=== PATIENT | female | born 1965 | race Caucasian/White ===

== ENCOUNTER 2017-06-21 10:37 | Emergency (ER) | payer OTHER ==
[2017-06-21] MEDS ORDERED: Ondansetron 4 MG/2 ML SDV IVPUSH ONE (11:17)
[2017-06-21] MEDS ORDERED: Sodium Chloride 0.9% 1,000 ML IV ONE (11:17)
--- NOTE | 2017-06-21 11:24 | EDM.PDOC ---
ED HPI GENERAL MEDICAL PROBLEM - General Chief Complaint: Eye Problems Stated Complaint: SEEING REBEKAH HOUSTON Time Seen by Provider: 06/21/17 10:44 Source of Information: Reports: Patient History Limitations: Reports: No Limitations - History of Present Illness INITIAL COMMENTS - FREE TEXT/NARRATIVE: HISTORY AND PHYSICAL: History of present illness: Patient is a 52-year-old female who presents to the emergency room with complaints of migraine headache and a brief episode of disturbance. 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 She states she took some prescribed migraine medication and went home. When she presented to the emergency room she stated she had no concerns other than wanting her vision evaluated. Upon my examination she states that he now has a migraine. This is accompanied with nausea, and light sensitivity. With previous migraines, she has have had no precipitated aura. She denies any recent head injury or trauma. Reports she gets at least one migraine per month. 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 Denies any alcohol or drug abuse Review of systems: As per history of present illness and below otherwise all systems reviewed and negative. Past medical history: As per history of present illness and as reviewed below otherwise noncontributory. Surgical history: As per history of present illness and as reviewed below otherwise noncontributory. Social history: No reported history of drug or alcohol abuse. Family history: As per history of present illness and as reviewed below otherwise noncontributory. Physical exam: Gen.: Well-developed and well-nourished 52-year-old female. Appears nontoxic. Able to speak in full sentences without shortness of breath. Alert and oriented. HEENT: Atraumatic, normocephalic, pupils reactive, negative for conjunctival pallor or scleral icterus, mucous membranes moist, throat clear, neck supple, nontender, trachea midline. Lungs: Clear to auscultation, breath sounds equal bilaterally, chest nontender. Heart: S1S2, regular rate and rhythm without any overt murmurs Abdomen: Soft, nondistended, nontender. Negative for masses or hepatosplenomegaly. Negative for costovertebral tenderness. Pelvis: Stable nontender. Genitourinary: Deferred. Rectal: Deferred. Extremities: Atraumatic, negative for cords or calf pain. Neurovascular unremarkable. I witnessed the patient walk in the hallways and she was steady on her feet. Gait was coordinated. Neuro: Awake, alert, oriented. Cranial nerves II through XII unremarkable. Cerebellum unremarkable. Motor and sensory unremarkable throughout. Exam nonfocal. Reviewed lab and CT results with patient. These were within normal limits. When asked how she's feeling, she reports "while I'm here". She is requesting something stronger for pain. I informed her that she is likely not could have her pain completely gone at this time. We discussed her following up with her primary senior pensions administrator for a yearly eye exam, she is agreeable and voices understanding. I ordered morphine at this time for pain management. She told nursing staff "this does not work for me". Will try Ativan to help alleviate her headache. She does have a ride home. We'll discharge her to home. She will follow-up with her primary care provider for further evaluation. Is agreeable to plan of care and denies any further questions. Diagnostics: CBC, CMP, CT Therapeutics: IV fluid, Zofran Toradol (patient states she has had this in the emergency room previously without any problems, not a true allergy) Morphine-patient declined Ativan Impression: Migraine with aura Plan: 1. These do not drive as you have been given Ativan for pain. Take the rest of the day to recover from your migraine, preferably in a dark quiet room. He may take [id number] migraine medications such as Aleve. 2. Follow-up with your primary care provider for further evaluation as we discussed. Please see the senior pensions administrator for yearly eye exam as we discussed. Return to the ED as needed and as discussed. Definitive disposition and diagnosis as appropriate pending reevaluation and review of above. Onset: Today Duration: Minutes: Location: Reports: Head Improves with: Reports: None Worsens with: Reports: None Bilateral Head Pain Score (Numeric/FACES): 6 - Related Data Allergies Allergy/AdvReac Type Severity Reaction Status Date / Time ibuprofen Allergy Edema Verified 06/21/17 10:47 shellfish derived Allergy Itching Verified 06/21/17 10:47 Sulfa (Sulfonamide Allergy Edema Verified 06/21/17 10:47 Antibiotics) Home Meds: Home Meds Baclofen 20 mg PO BID PRN 06/21/17 [History] Escitalopram [Lexapro] 20 mg PO BID 06/21/17 [History] SUMAtriptan [Imitrex] 100 mg PO Q8HR PRN 06/21/17 [History] oxyCODONE HCl/Acetaminophen [Percocet 5-325 mg Tablet] 0.5 each PO BEDTIME PRN 06/21/17 [History] Past Medical History Other OB/BYN History: hysterectomy Other Musculoskeletal History: neck pain Neurological History: Reports: Migraines - Past Surgical History Other HEENT Surgeries/Procedures: lasix, dental implains Other Female Surgeries/Procedures: kidney stent Social & Family History - Family History Family Medical History: Noncontributory - Tobacco Use Smoking Status *Q: Never Smoker - Recreational Drug Use Recreational Drug Use: No ED ROS GENERAL - Review of Systems Review Of Systems: ROS reveals no pertinent complaints other than HPI. Constitutional: Denies: Fever, Chills Respiratory: Denies: Shortness of Breath Cardiovascular: Denies: Chest Pain, Blood Pressure Problem, Palpitations GI/Abdominal: Reports: Nausea. Denies: Abdominal Pain, Diarrhea, Vomiting Musculoskeletal: Reports: Neck Pain (Chronic neck pain) Neurological: Reports: Headache. Denies: Confusion, Numbness ED EXAM GENERAL W FULL EYE - Physical Exam Exam: See Below (See dictation) Course - Vital Signs Last Recorded V/S: Last Vital Signs Temp 36.5 C 06/21/17 10:51 Pulse 71 06/21/17 13:14 Resp 18 06/21/17 13:14 BP 152/83 H 06/21/17 13:14 Pulse Ox 98 06/21/17 13:14 - Orders/Labs/Meds Labs: Laboratory Tests 06/21/17 06/21/17 Range/Units 11:30 11:30 WBC 7.81 (4.0-11.0) K/uL RBC 5.00 (4.30-5.90) M/uL Hgb 14.5 (12.0-16.0) g/dL Hct 43.9 (36.0-46.0) % MCV 87.8 (80.0-98.0) fL MCH 29.0 (27.0-32.0) pg MCHC 33.0 (31.0-37.0) g/dL RDW Std Deviation 42.3 (28.0-62.0) fl RDW Coeff of Carly 14 (11.0-15.0) % Plt Count 219 (150-400) K/uL MPV 10.10 (7.40-12.00) fL Neut % (Auto) 65.8 (48.0-80.0) % Lymph % (Auto) 24.8 (16.0-40.0) % [place] % (Auto) 7.8 (0.0-15.0) % Eos % (Auto) 1.5 (0.0-7.0) % Baso % (Auto) 0.1 (0.0-1.5) % Neut # (Auto) 5.1 (1.4-5.7) K/uL Lymph # (Auto) 1.9 (0.6-2.4) K/uL [place] # (Auto) 0.6 (0.0-0.8) K/uL Eos # (Auto) 0.1 (0.0-0.7) K/uL Baso # (Auto) 0.0 (0.0-0.1) K/uL Sodium 141 (136-146) mmol/L Potassium 4.5 (3.5-5.1) mmol/L Chloride 101 (98-110) mmol/L Carbon Dioxide 30 (21-31) mmol/L BUN 14 (6.0-23.0) mg/dL Creatinine 0.9 (0.6-1.5) mg/dL Est Cr Clr Drug Dosing 64.58 mL/min Estimated GFR (MDRD) > 60.0 ml/min Glucose 92 (60-110) mg/dL Calcium 9.9 (8.8-10.8) mg/dL Total Bilirubin 0.5 (0.1-1.5) mg/dL AST 35 (5-40) IU/L ALT 51 (8-54) IU/L Alkaline Phosphatase 76 (40-150) Total Protein 7.5 (6.0-8.0) g/dL Albumin 4.3 (3.5-5.0) g/dL Globulin 3.2 (2.0-3.5) g/dL Albumin/Globulin Ratio 1.3 (1.3-2.8) Meds: Medications Discontinued Medications Generic Name Dose Route Start Last Admin Trade Name Freq PRN Reason Stop Dose Admin Sodium Chloride 1,000 mls @ 999 mls/hr 06/21/17 11:17 06/21/17 11:40 Normal Saline IV 06/21/17 12:17 999 mls/hr STAT ONE Administration Ketorolac Tromethamine 30 mg 06/21/17 11:27 06/21/17 11:43 Toradol IVPUSH 06/21/17 11:28 30 mg ONETIME ONE Administration Lorazepam 0.5 mg 06/21/17 12:44 06/21/17 13:06 Ativan IVPUSH 06/21/17 12:45 0.5 mg ONETIME ONE Administration Morphine Sulfate 2 mg 06/21/17 12:15 06/21/17 12:29 Morphine IVPUSH 06/21/17 12:16 Not Given ONETIME ONE Ondansetron HCl 4 mg 06/21/17 11:17 06/21/17 11:40 Zofran IVPUSH 06/21/17 11:18 4 mg ONETIME ONE Administration Departure - Departure Time of Disposition: 12:49 Disposition: Home, Self-Care 01 Condition: Good Clinical Impression: Migraine Qualifiers: Migraine type: with aura Status migrainosus presence: without status migrainosus Intractability: not intractable Qualified Code(s): G43.109 - Migraine with aura, not intractable, without status migrainosus - Discharge Information Instructions: Migraine Headache, [id number] Referrals: Aniya Zapata DO [Primary Care Provider] - Forms: ED Department Discharge Additional Instructions: My general discharge The following information is given to patients seen in the emergency department who are being discharged to home. This information is to outline your options for follow-up care. We provide all patients seen in our emergency department with a follow-up referral. The need for follow-up, as well as the timing and circumstances, are variable depending upon the specifics of your emergency department visit. If you don't have a primary care physician on staff, we will provide you with a referral. We always advise you to contact your personal physician following an emergency department visit to inform them of the circumstance of the visit and for follow-up with them and/or the need for any referrals to a consulting specialist. The emergency department will also refer you to a specialist when appropriate. This referral assures that you have the opportunity for follow-up care with a specialist. All of these measure are taken in an effort to provide you with optimal care, which includes your follow-up. Under all circumstances we always encourage you to contact your private physician who remains a resource for coordinating your care. When calling for follow-up care, please make the office aware that this follow-up is from your recent emergency room visit. If for any reason you are refused follow-up, please contact the [facility] Emergency Department at and asked to speak to the emergency department charge nurse. [facility] [address] [place] [id number] [facility] [address] [address] [address] as you have been given Ativan for pain. Take the rest of the day to recover from your migraine, preferably in a dark quiet room. He may take [id number] migraine medications such as Excedrin Migraine. 2. Follow-up with your primary care provider for further evaluation as we discussed. Please see the senior pensions administrator for yearly eye exam as we discussed. Return to the ED as needed and as discussed.
[2017-06-21] MEDS ORDERED: Ketorolac 30 MG/ML SDV IVPUSH ONE (11:27)
[2017-06-21 12:05] LABS: CHLORIDE,CL 101 mmol/L (98-110); SODIUM,NA 141 mmol/L (136-146)
--- NOTE | 2017-06-21 12:11 | CT ---
EXAMINATION: Non contrast CT head. Coronal and sagittal reformats. HISTORY: Pain FINDINGS: No evidence of intra or extra axial hemorrhage, mass, midline shift, hydrocephalus or edema. No hypoattenuation changes in the major vascular territories to suggest acute infarct. No abnormal intracranial calcifications are detected. No evidence of substantial vascular calcificat ions. Paranasal sinuses and mastoid air cells are well aerated without substantial findings. The orbits an d globes are symmetric. Pituitary fossa appears unremarkable. Mild leftward deviation of the nasal septum. Calvarium is intact. No evidence of skull fracture. IMPRESSION: No acute intracranial findings.
[2017-06-21] MEDS ORDERED: Morphine 2 MG/ML Syringe IVPUSH ONE (12:15)
[2017-06-21] MEDS ORDERED: LORazepam 2 MG/ML SDV IVPUSH ONE (12:44)
[2017-06-21 15:34] VITALS: BP 152/83
== END 2017-06-21 13:14 | disposition home or self-care (01) ==
LOC: MW.ED 10:37
DX: G43.109 Migraine with aura, not intractable, without status migrainosus (principal); Z88.2 Allergy status to sulfonamides; Z88.6 Allergy status to analgesic agent; Z91.013 Allergy to seafood
CPT/HCPCS: 36415; 70450; 80053; 85025; 96361; 96374; 96375; 99284; J1885; J2060; J2405; J7040; 99283

== ENCOUNTER 2017-08-19 08:19 | Emergency (ER) | payer OTHER ==
[2017-08-19] MEDS ORDERED: Sodium Chloride 0.9% 1,000 ML IV ONE ×2 (08:35→09:57)
[2017-08-19] MEDS ORDERED: Ketorolac 30 MG/ML SDV IVPUSH ONE (08:35)
[2017-08-19] MEDS ORDERED: Ondansetron 4 MG/2 ML SDV IVPUSH ONE (08:35)
--- NOTE | 2017-08-19 08:36 | EDM.PDOC ---
ED HPI GENERAL MEDICAL PROBLEM - General Chief Complaint: Respiratory Problem Stated Complaint: MIGRAINE AND FLU LIKE SYMPTOMS Time Seen by Provider: 08/19/17 08:35 Source of Information: Reports: Patient - History of Present Illness INITIAL COMMENTS - FREE TEXT/NARRATIVE: HISTORY AND PHYSICAL: History of present illness: [Patient with fever cough and myalgias presents with migraine today, she does have history of migraine she rates 10 out of 10 on arrival after initial treatment of Toradol and bolus fluids 6 out of 10 hour. Did provide some Ativan and Benadryl thereafter with improvement she is influenza positive No vomiting chills sweats no chest pain shortness breath headache dizziness palpitation about a urine symptoms ] Review of systems: As per history of present illness and below otherwise all systems reviewed and negative. Past medical history: As per history of present illness and as reviewed below otherwise noncontributory. Surgical history: As per history of present illness and as reviewed below otherwise noncontributory. Social history: No reported history of drug or alcohol abuse. Family history: As per history of present illness and as reviewed below otherwise noncontributory. Physical exam: HEENT: Atraumatic, normocephalic, pupils reactive, negative for conjunctival pallor or scleral icterus, mucous membranes moist, throat clear, neck supple, nontender, trachea midline. Lungs: Clear to auscultation, breath sounds equal bilaterally, chest nontender. Heart: S1S2, regular, negative for clicks, rubs, or JVD. Abdomen: Soft, nondistended, nontender. Negative for masses or hepatosplenomegaly. Negative for costovertebral tenderness. Pelvis: Stable nontender. Genitourinary: Deferred. Rectal: Deferred. Extremities: Atraumatic, negative for cords or calf pain. Neurovascular unremarkable. Neuro: Awake, alert, oriented. Cranial nerves II through XII unremarkable. Cerebellum unremarkable. Motor and sensory unremarkable throughout. Exam nonfocal. Diagnostics: [Influenza Chest 1 view CBC CMP UA ] Therapeutics: [1 L normal saline bolus Zofran 8 mg IV Toradol 30 mg IV Ativan 1 mg IV Benadryl 25 mg IV Tamiflu Phenergan with codeine Rest fluids nutrition ] Impression: Influenza Migraine Vomiting] Definitive disposition and diagnosis as appropriate pending reevaluation and review of above. Headache Pain Score (Numeric/FACES): 10 - Related Data Allergies Allergy/AdvReac Type Severity Reaction Status Date / Time ibuprofen Allergy Edema Verified 08/19/17 08:34 shellfish derived Allergy Itching Verified 08/19/17 08:34 Sulfa (Sulfonamide Allergy Edema Verified 08/19/17 08:34 Antibiotics) Home Meds: Home Meds Baclofen 20 mg PO BID PRN 06/21/17 [History] Escitalopram [Lexapro] 20 mg PO BID 06/21/17 [History] SUMAtriptan [Imitrex] 100 mg PO Q8HR PRN 06/21/17 [History] oxyCODONE HCl/Acetaminophen [Percocet 5-325 mg Tablet] 0.5 each PO BEDTIME PRN 06/21/17 [History] Past Medical History Other OB/BYN History: hysterectomy Other Musculoskeletal History: neck pain Neurological History: Reports: Migraines - Past Surgical History Other HEENT Surgeries/Procedures: lasix, dental implains Other Female Surgeries/Procedures: kidney stent Social & Family History - Family History Family Medical History: Noncontributory - Tobacco Use Smoking Status *Q: Never Smoker - Recreational Drug Use Recreational Drug Use: No ED ROS GENERAL - Review of Systems Review Of Systems: ROS reveals no pertinent complaints other than HPI. ED EXAM, GENERAL - Physical Exam Exam: See Below Course - Vital Signs Last Recorded V/S: Last Vital Signs Temp 98.9 F 08/19/17 08:31 Pulse 82 08/19/17 08:31 Resp 18 08/19/17 08:31 BP 143/83 H 08/19/17 08:31 Pulse Ox 99 08/19/17 08:31 - Orders/Labs/Meds Orders: Active Orders 24 hr Category Date Time Status STREP SCRN A RAPID W CULT CONF [RM] Stat Lab 08/19/17 09:46 Uncollected UA W/MICROSCOPIC [URIN] Stat Lab 08/19/17 08:36 Uncollected Labs: Laboratory Tests 08/19/17 08/19/17 Range/Units 09:01 09:01 WBC 6.18 (4.0-11.0) K/uL RBC 5.07 (4.30-5.90) M/uL Hgb 14.6 (12.0-16.0) g/dL Hct 43.6 (36.0-46.0) % MCV 86.0 (80.0-98.0) fL MCH 28.8 (27.0-32.0) pg MCHC 33.5 (31.0-37.0) g/dL RDW Std Deviation 42.9 (28.0-62.0) fl RDW Coeff of Carly 14 (11.0-15.0) % Plt Count 198 (150-400) K/uL MPV 10.10 (7.40-12.00) fL Neut % (Auto) 75.8 (48.0-80.0) % Lymph % (Auto) 11.2 L (16.0-40.0) % [place] % (Auto) 12.8 (0.0-15.0) % Eos % (Auto) 0.0 (0.0-7.0) % Baso % (Auto) 0.2 (0.0-1.5) % Neut # (Auto) 4.7 (1.4-5.7) K/uL Lymph # (Auto) 0.7 (0.6-2.4) K/uL [place] # (Auto) 0.8 (0.0-0.8) K/uL Eos # (Auto) 0.0 (0.0-0.7) K/uL Baso # (Auto) 0.0 (0.0-0.1) K/uL Nucleated RBC % 0.0 /100WBC Nucleated RBCs # 0 K/uL Sodium 138 (136-146) mmol/L Potassium 3.9 (3.5-5.1) mmol/L Chloride 105 (98-110) mmol/L Carbon Dioxide 21 (21-31) mmol/L BUN 15 (6.0-23.0) mg/dL Creatinine 0.9 (0.6-1.5) mg/dL Est Cr Clr Drug Dosing 65.93 mL/min Estimated GFR (MDRD) > 60.0 ml/min Glucose 112 H (60-110) mg/dL Calcium 9.8 (8.8-10.8) mg/dL Total Bilirubin 0.4 (0.1-1.5) mg/dL AST 25 (5-40) IU/L ALT 27 (8-54) IU/L Alkaline Phosphatase 71 (40-150) Total Protein 7.6 (6.0-8.0) g/dL Albumin 4.5 (3.5-5.0) g/dL Globulin 3.1 (2.0-3.5) g/dL Albumin/Globulin Ratio 1.5 (1.3-2.8) Meds: Medications Discontinued Medications Generic Name Dose Route Start Last Admin Trade Name Ruby PRN Reason Stop Dose Admin Diphenhydramine HCl 25 mg 08/19/17 09:44 Benadryl IVPUSH 08/19/17 09:45 ONETIME ONE Sodium Chloride 1,000 mls @ 999 mls/hr 08/19/17 08:35 08/19/17 09:04 Normal Saline IV 08/19/17 09:35 999 mls/hr STAT ONE Administration Ketorolac Tromethamine 30 mg 08/19/17 08:35 08/19/17 09:09 Toradol IVPUSH 08/19/17 08:36 30 mg ONETIME ONE Administration Lorazepam 1 mg 08/19/17 09:42 Ativan IVPUSH 08/19/17 09:43 ONETIME ONE Ondansetron HCl 8 mg 08/19/17 08:35 08/19/17 09:07 Zofran IVPUSH 08/19/17 08:36 8 mg ONETIME ONE Administration Departure - Departure Time of Disposition: 09:47 Disposition: Home, Self-Care 01 Condition: Good Clinical Impression: Influenza Migraine Qualifiers: Migraine type: with aura Status migrainosus presence: without status migrainosus Intractability: not intractable Qualified Code(s): G43.109 - Migraine with aura, not intractable, without status migrainosus - Discharge Information Referrals: Aniya Zapata DO [Primary Care Provider] - Forms: ED Department Discharge Additional Instructions: Medication as prescribed Rest fluids nutrition 3-5 days out of work Return if symptoms persist or worsen Follow-up with primary care as needed The following information is given to patients seen in the emergency department who are being discharged to home. This information is to outline your options for follow-up care. We provide all patients seen in our emergency department with a follow-up referral. The need for follow-up, as well as the timing and circumstances, are variable depending upon the specifics of your emergency department visit. If you don't have a primary care physician on staff, we will provide you with a referral. We always advise you to contact your personal physician following an emergency department visit to inform them of the circumstance of the visit and for follow-up with them and/or the need for any referrals to a consulting specialist. The emergency department will also refer you to a specialist when appropriate. This referral assures that you have the opportunity for follow-up care with a specialist. All of these measure are taken in an effort to provide you with optimal care, which includes your follow-up. Under all circumstances we always encourage you to contact your private physician who remains a resource for coordinating your care. When calling for follow-up care, please make the office aware that this follow-up is from your recent emergency room visit. If for any reason you are refused follow-up, please contact the [facility] emergency department at and asked to speak to the emergency department charge nurse. - My Orders Last 24 Hours: My Active Orders 08/19/17 08:36 UA W/MICROSCOPIC [URIN] Stat 08/19/17 09:46 STREP SCRN A RAPID W CULT CONF [RM] Stat - Assessment/Plan Last 24 Hours: My Active Orders 08/19/17 08:36 UA W/MICROSCOPIC [URIN] Stat 08/19/17 09:46 STREP SCRN A RAPID W CULT CONF [RM] Stat
--- NOTE | 2017-08-19 09:36 | CR ---
EXAMINATION: Portable chest radiograph. HISTORY: Shortness of breath. FINDINGS: The trachea is midline. The cardiomediastinal silhouette is within normal limits. No pulmonary infilt rates, effusions or pneumothorax. Osseous structures appear unremarkable. IMPRESSION: No acute cardiopulmonary process.
[2017-08-19 09:41] LABS: CHLORIDE,CL 105 mmol/L (98-110); SODIUM,NA 138 mmol/L (136-146)
[2017-08-19] MEDS ORDERED: LORazepam 2 MG/ML MDV IVPUSH ONE (09:42)
[2017-08-19] MEDS ORDERED: diphenhydrAMINE 50 MG/ML SDV IVPUSH ONE (09:44)
[2017-08-19 20:24] VITALS: BP 126/76
== END 2017-08-19 11:03 | disposition home or self-care (01) ==
LOC: MW.ED 08:19
DX: J11.1 Influenza due to unidentified influenza virus with other respiratory manifestations (principal); G43.109 Migraine with aura, not intractable, without status migrainosus; Z88.2 Allergy status to sulfonamides; Z88.6 Allergy status to analgesic agent; Z91.013 Allergy to seafood
CPT/HCPCS: 36415; 71045; 80053; 85025; 87081; 87804; 87880; 96361; 96374; 96375; 99284; J1200; J1885; J2060; J2405; J7040; 99283

== ENCOUNTER 2020-11-26 11:34 | Emergency (ER) | payer OTHER ==
--- NOTE | 2020-11-26 11:48 | PCM.EKG ---
#1 Interpretation EKG Date: 11/26/20 Time: 11:42 Rhythm: NSR Rate (Beats/Min): 90 QT: Normal
--- NOTE | 2020-11-26 12:17 | EDM.PDOC ---
ED HPI GENERAL MEDICAL PROBLEM - General Chief Complaint: Cardiovascular Problem Stated Complaint: HBP CHEST PAIN Time Seen by Provider: 11/26/20 11:36 Source of Information: Reports: Patient History Limitations: Reports: No Limitations - History of Present Illness INITIAL COMMENTS - FREE TEXT/NARRATIVE: HISTORY AND PHYSICAL: History of present illness: The patient is a 61-year-old female with history of newly diagnosed hypertension chest pain presented to the emergency room with complaints of continued hypertension and chest pain. The patient reports she saw Dr. Swanson on November 23 for a blood pressure of 173/101 for about a week. The patient was prescribed lisinopril 20 mg daily and for the last 4 days her blood pressure has been running 149/98. The patient states she is having midsternal intermittent chest pain for 7 weeks. She spoke with Dr. Swanson regarding her chest pain and she reports she was told she would need to go to see a wallpaper consultant. The patient s tates that she will have chest pain at various times throughout the day but on a daily basis. She had 2 episodes after drinking cold fluids and she normally just relax to try to get the pain to go away. She does take Aleve at times. She has shortness of breath with the chest pain when she is exerting herself such as going up the stairs. She said sometimes she becomes diaphoretic but associates that with hormonal changes post hysterectomy. She states she has nausea but is not associated nausea but the chest pain. She states that she has been having intermittent diarrhea for about a week. She has had a cough for 2 to 3 weeks. She feels as if maybe getting worse she does not appreciate any modifiers regarding cough. She did have a negative COVID-19 test in July and she has not been vaccinated against COVID-19. The patient had 2 biopsies on her thyroid due to nodules. She has no definitive diagnosis but is seeing an bathing suit maker at some point in the future. Review of systems: As per history of present illness and below otherwise all systems reviewed and negative. Past medical history: As per history of present illness and as reviewed below otherwise noncontributor y. Surgical history: As per history of present illness and as reviewed below otherwise noncontributory. Social history: See social history for further information Family history: As per history of present illness and as reviewed below otherwise noncontributory. Physical exam: General: Well developed and well nourished. Alert and orientated x 3. Nontoxic in appearance and in no acute distress. Vital signs are stable and have been reviewed by me. Nursing notes were reviewed. HEENT: Atraumatic, normocephalic, pupils equal and reactive bilaterally, negative for conjunctival pallor or scleral icterus, mucous membranes moist, TMs normal bilaterally, throat clear, neck supple, nontender, trachea midline. No drooling or trismus noted. No meningeal signs. No hot potato voice noted. Lungs: Clear to auscultation bilaterally. No wheezes, rales, or rhonchi. Chest nontender. Normal work of breathing, no accessory muscles used. Heart: S1S2, regular rate and rhythm without overt murmur, gallops, or rubs. No JVD. No peripheral edema Abdomen: Soft, nondistended, nontender. Normoactive bowel sounds. Negative for masses or costovertebral tenderness. No was 170/98 Skin: Intact, warm, dry. No lesions or rashes noted. Hematologic: No petechiae or purpra. Mucosa appropriate color and normal nail bed color and refill. Extremities: Atraumatic, moves all extremities per self without difficulty or deficits, negative for cords or calf pain. Neurovascular unremarkable. Neuro: Awake, alert, oriented. Cranial nerves II through XII unremarkable. Cerebellum unremarkable. Motor and sensory unremarkable throughout. Exam nonfocal. Psychiatric: Mood and affect are appropriate. Normal thought process. Answering questions appropriately. Notes: *This patient was seen and evaluated during the 2019 SARS-CoV-2 novel coronavirus pandemic period. Community viral transmission is ongoing at time of this encounter and the emergency department is operating under pandemic response procedures. After examination and discussion the patient is agreeable to blood work, EKG, CXR and monitoring blood pressure. The patient was educated on trends in blood pressure for medication changes. The creatine is 1.3 and the patient which could be from the initiation of the Lisinopril. I will advised the patient to follow up with Dr. Sarkar for possible change in blood pressure medication. The patient is stating that her chest pain is more of a burning and has experienced three episodes while in the ED. I ordered a GI Cocktail for possible GERD. The patient was stared on Omeprazole on November 23, 2020. She has not appreciated it helping. The CXR findings:Small new left pleural effusion with minimal new associated platelike atelectasis or scarring in the left lung base laterally. No focal dense infiltrate or consolidation either lung. Heart size normal. Chest otherwise negative. The patient has a normal WBC, I do not suspect pneumonia. I have talked with the patient about today's findings, in addition to providing specific details for plan of care. Reassessment at the time of disposition demonstrates that the patient is in no acute distress. The patient is stable for discharge, counseling was provided and we discussed in great detail signs and symptoms that would prompt them to return to the Emergency Department. Medication, follow up and supportive care measures were reviewed and discussed. Voices understanding and is agreeable to plan of care. Denies any further questions or concerns at this time. Diagnostics: EKG, CXR, CBC, CMP, MG, troponin Therapeutics: GI cocktail Prescription: Impression: Plan: 1. You were evaluated today on an emergent basis. Your chest pain was evaluated with labs, a chest x-ray, an EKG, and GI Cocktail. Your chest pain is not due to a heart attack. Your cardiac risk score is low, bu you still need to follow up with a wallpaper consultant for further work-up. Your blood pressure is elevated but not dangerous. You creatine is elevated to 1.3 which could be due to your Lisinopril on November 23, 2020. You need to call Dr. Sarkar's office regarding the possible need to change your medications. You need to drink plenty of fluids for the next several days. If you have a change in your chest pain please return to the ED. 2. You can alternate Tylenol and ibuprofen as needed for pain and fever management. 3. We encourage you to follow up with your primary care provider and/or recommended specialist in the next few days for re-evaluation and further care/management. 4. If your symptoms should worsen, new symptoms develop or any of the signs and symptoms we discussed should arise please return to the emergency room or call 911 (if needed). Definitive disposition and diagnosis as appropriate pending reevaluation and review of above. chest Pain Score (Numeric/FACES): 3 - Related Data Allergies Allergy/AdvReac Type Severity Reaction Status Date / Time ibuprofen Allergy Edema Verified 11/26/20 11:49 shellfish derived Allergy Itching Verified 11/26/20 11:49 Sulfa (Sulfonamide Allergy Edema Verified 11/26/20 11:49 Antibiotics) Home Meds: Home Meds Escitalopram [Lexapro] 20 mg PO BID 06/21/17 [History] SUMAtriptan [Imitrex] 100 mg PO Q8HR PRN 06/21/17 [History] Diclofenac Sodium [Voltaren] 75 mg PO BIDMEALS PRN #20 tab.cr 07/08/18 [Rx] FLUoxetine [PROzac] 10 mg PO 07/08/18 [History] Omeprazole 40 mg PO DAILY 11/26/20 [History] buPROPion HCL [Wellbutrin Xl] 300 mg PO DAILY 11/26/20 [History] busPIRone HCl [Buspirone HCl] 7.5 mg PO DAILY 11/26/20 [History] lisinopriL [Lisinopril] 20 mg PO DAILY 11/26/20 [History] Past Medical History Cardiovascular History: Reports: Hypertension 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 Other Musculoskeletal History: neck pain Neurological History: Reports: Migraines Psychiatric History: Reports: Anxiety, Depression Endocrine/Metabolic History: Reports: Other (See Below) Other Endocrine/Metabolic History: "thyroid disorder" - Infectious Disease History Infectious Disease History: Reports: Shingles - Past Surgical History Other HEENT Surgeries/Procedures: lasix, dental implains Other Female Surgeries/Procedures: kidney stent Social & Family History - Family History Family Medical History: No Pertinent Family History - Tobacco Use Second Hand Smoke Exposure: Yes - Caffeine Use Caffeine Use: Reports: None - Recreational Drug Use Recreational Drug Use: No ED ROS GENERAL - Review of Systems Review Of Systems: Comprehensive ROS is negative, except as noted in HPI. ED EXAM, GENERAL - Physical Exam Exam: See Below (See dictation) Course - Vital Signs Last Recorded V/S: Last Vital Signs Temp 98 F 11/26/20 11:46 Pulse 93 11/26/20 13:19 Resp 17 11/26/20 13:19 BP 145/83 H 11/26/20 13:19 Pulse Ox 95 11/26/20 13:19 - Orders/Labs/Meds Orders: Active Orders 24 hr Category Date Time Status EKG 12 Lead [EKG Documentation Completion] [RC] STAT Care 11/26/20 11:59 Active Labs: Laboratory Tests 04/24/21 04/24/21 04/24/21 Range/Units 11:40 11:40 11:40 WBC 6.70 (4.0-11.0) K/uL RBC 5.15 (4.30-5.90) M/uL Hgb 14.9 (12.0-16.0) g/dL Hct 44.2 (36.0-46.0) % MCV 85.8 (80.0-98.0) fL MCH 28.9 (27.0-32.0) pg MCHC 33.7 (31.0-37.0) g/dL RDW Std Deviation 41.8 (28.0-62.0) fl RDW Coeff of Carly 13 (11.0-15.0) % Plt Count 211 (150-400) K/uL MPV 10.20 (7.40-12.00) fL Neut % (Auto) 59.2 (48.0-80.0) % Lymph % (Auto) 29.9 (16.0-40.0) % [place] % (Auto) 9.6 (0.0-15.0) % Eos % (Auto) 1.0 (0.0-7.0) % Baso % (Auto) 0.3 (0.0-1.5) % Neut # (Auto) 4.0 (1.4-5.7) K/uL Lymph # (Auto) 2.0 (0.6-2.4) K/uL [place] # (Auto) 0.6 (0.0-0.8) K/uL Eos # (Auto) 0.1 (0.0-0.7) K/uL Baso # (Auto) 0.0 (0.0-0.1) K/uL Nucleated RBC % 0.0 /100WBC Nucleated RBCs # 0 K/uL Sodium 143 (136-145) mmol/L Potassium 3.9 (3.5-5.1) mmol/L Chloride 108 H (98-107) mmol/L Carbon Dioxide 25.7 (21.0-32.0) mmol/L BUN 21 H (7.0-18.0) mg/dL Creatinine 1.3 H (0.6-1.0) mg/dL Est Cr Clr Drug Dosing 43.22 mL/min Estimated GFR (MDRD) 42.8 ml/min Glucose 93 (74-106) mg/dL Calcium 9.2 (8.5-10.1) mg/dL Magnesium 1.7 L (1.8-2.4) mg/dL Total Bilirubin 0.3 (0.2-1.0) mg/dL AST 19 (15-37) IU/L ALT 36 (14-63) IU/L Alkaline Phosphatase 97 (46-116) U/L Troponin I < 0.050 (0.000-0.056) ng/mL Total Protein 7.3 (6.4-8.2) g/dL Albumin 3.9 (3.4-5.0) g/dL Globulin 3.4 (2.6-4.0) g/dL Albumin/Globulin Ratio 1.1 (0.9-1.6) TSH 3rd Generation 1.74 (0.36-3.74) uIU/mL Meds: Medications Discontinued Medications Generic Name Dose Route Start Last Admin Trade Name Freq PRN Reason Stop Dose Admin Al Hydroxide/Mg Hydroxide 15 0 ml 11/26/20 12:59 11/26/20 13:07 ml/ Lidocaine HCl 5 ml PO 11/26/20 13:00 1 each ONETIME ONE Administration Sodium Chloride 1,000 mls @ 999 mls/hr 11/26/20 12:43 11/26/20 13:00 Normal Saline IV 11/26/20 13:43 Not Given .BOLUS ONE Departure - Departure Time of Disposition: 13:36 Disposition: Home, Self-Care 01 Clinical Impression: Chest pain Qualifiers: Chest pain type: unspecified Qualified Code(s): R07.9 - Chest pain, unspecified Instructions: Nonspecific Chest Pain, Adult Referrals: Robina Murphy DO [Primary Care Provider] - Forms: ED Department Discharge Additional Instructions: The following information is given to patients seen in the emergency department who are being discharged to home. This information is to outline your options for follow-up care. We provide all patients seen in our emergency department with a follow-up referral. The need for follow-up, as well as the timing and circumstances, are variable depending upon the specifics of your emergency department visit. If you don't have a primary care physician on staff, we will provide you with a referral. We always advise you to contact your personal physician following an emergency department visit to inform them of the circumstance of the visit and for follow-up with them and/or the need for any referrals to a consulting specialist. The emergency department will also refer you to a specialist when appropriate. This referral assures that you have the opportunity for follow-up care with a specialist. All of these measure are taken in an effort to provide you with optimal care, which includes your follow-up. Under all circumstances we always encourage you to contact your private physician who remains a resource for coordinating your care. When calling for follow-up care, please make the office aware that this follow-up is from your recent emergency room visit. If for any reason you are refused follow-up, please contact the [facility] Emergency Department at and asked to speak to the emergency department charge nurse. [facility] - Primary [facility] [address] [place] [id number] [address] [address] Plan: 1. You were evaluated today on an emergent basis. Your chest pain was evaluated with labs, a chest x-ray, an EKG, and GI Cocktail. Your chest pain is not due to a heart attack. Your cardiac risk score is low, bu you still need to follow up with a wallpaper consultant for further work-up. Your blood pressure is elevated but not dangerous. You creatine is elevated to 1.3 which could be due to your Lisinopril on November 23, 2020. You need to call Dr. Sarkar's office regarding the possible need to change your medications. You need to drink plenty of fluids for the next several days. If you have a change in your chest pain please return to the ED. 2. You can alternate Tylenol and ibuprofen as needed for pain and fever management. 3. We encourage you to follow up with your primary care provider and/or recommended specialist in the next few days for re-evaluation and further care/management. 4. If your symptoms should worsen, new symptoms develop or any of the signs and symptoms we discussed should arise please return to the emergency room or call 911 (if needed). Sepsis Event Note (ED) - Evaluation Sepsis Screening Result: No Definite Risk - Focused Exam Vital Signs: Vital Signs Temp Pulse Resp BP Pulse Ox 11/26/20 13:19 93 17 145/83 H 95 11/26/20 13:00 84 17 152/81 H 97 11/26/20 12:27 93 157/81 H 96 11/26/20 11:46 98 F 93 16 168/89 H 96 - My Orders Last 24 Hours: My Active Orders 11/26/20 11:59 EKG 12 Lead [EKG Documentation Completion] [RC] STAT - Assessment/Plan Last 24 Hours: My Active Orders 11/26/20 11:59 EKG 12 Lead [EKG Documentation Completion] [RC] STAT
[2020-11-26 12:24] LABS: BLOOD UREA NITROGEN,BUN 21 mg/dL (7.0-18.0); CARBON DIOXIDE,CO2 25.7 mmol/L (21.0-32.0); CHLORIDE,CL 108 mmol/L (98-107); GLUCOSE RANDOM 93 mg/dL (74-106); POTASSIUM,K 3.9 mmol/L (3.5-5.1); SODIUM,NA 143 mmol/L (136-145)
[2020-11-26] MEDS ORDERED: Sodium Chloride 0.9% 1,000 ML IV ONE (12:43)
--- NOTE | 2020-11-26 12:58 | CR ---
INDICATION: Chest pain. TECHNIQUE: AP portable chest x-ray. COMPARISON: Chest x-ray 08/19/2017. FINDINGS: Small new left pleural effusion with minimal new associated platelike atelectasis or scarring in the left lung base laterally. No focal dense infiltrate or consolidation either lung. Heart size normal. Chest otherwise negative. Dictated by Nathan Fitzgerald MD @ 11/26/2020 12:57:[address] Nathan Fitzgerald @ Nov 26 2020 12:57PM
[2020-11-26] MEDS ORDERED: Alum Hydrox/Mag Hydrox/Simeth 15 ML, Lidocaine 2% 5 ML PO ONE ×2 (12:59)
[2020-11-26 13:43] VITALS: BP 131/68; PULSE 79
== END 2020-11-26 13:45 | disposition home or self-care (01) ==
LOC: MW.ED 11:34
DX: R07.2 Precordial pain (principal); R07.89 Other chest pain; I10 Essential (primary) hypertension; Z77.22 Contact with and (suspected) exposure to environmental tobacco smoke (acute) (chronic); Z88.2 Allergy status to sulfonamides; Z91.013 Allergy to seafood; Z88.8 Allergy status to other drugs, medicaments and biological substances
CPT/HCPCS: 36415; 71045; 80053; 83735; 84443; 84484; 85025; 93005; 99285; A9270; 99283